=== PATIENT | female | born 1985 | race Caucasian/White ===

== ENCOUNTER 2017-04-17 14:48 | Observation (INO) | payer OTHER ==
[~2017-04-17 14:48] MED LIST: FERROUS GLUCON240 MG PO; IBUPROFEN800 M1 PO; PERCOCET 5-3251 EACH PO; PRENATAL VITAM1 EA11 PO; SINGULAIR10 M1 PO; SYNTHROID125 MC1 PO; TRIPNIP TOP; VITAMIN B COMP1 EAC1 PO; VITAMIN D1000 UNI3 PO; ZOFRAN ODT8 MG PO; ZOFRAN4 M2 PO
[2017-04-17] MEDS ORDERED: ZOLOFT100 M1 PO (15:29)
[2017-04-17 16:18] LABS: URINE BILIRUBIN NEGATIVE (NEG); URINE BLOOD NEGATIVE (NEG); URINE GLUCOSE (UA) NEGATIVE (NEG); URINE KETONE NEGATIVE (NEG); URINE LEUKOCYTE ESTERASE NEGATIVE (NEG); URINE NITRITE NEGATIVE (NEG); URINE PROTEIN NEGATIVE (NEG); URINE SPECIFIC GRAVITY 1.015 (1.003-1.030)
[2017-04-17 16:21] LABS: URINE APPEARANCE CLEAR; URINE COLOR PALE YELLOW
[2017-05-05] MEDS ORDERED: SINGULAIR10 M1 PO (12:13)
[2017-05-05] MEDS ORDERED: FLOVENT DISKUS50 MCG INH (12:15)
[2017-05-05] MEDS ORDERED: STOOL SOFTENER1 EAC4 PO (12:16)
[2017-05-05] MEDS ORDERED: XOPENEX HFA15 G1 INH (12:16)
[2017-05-09] MEDS ORDERED: IBUPROFEN800 M1 PO (06:41)
[2017-05-09] MEDS ORDERED: PERCOCET 5-3251 EACH PO (09:58)
[2017-05-09] MEDS ORDERED: TYLENOL325 M2 PO (10:02)
[2017-05-09] MEDS ORDERED: ZOFRAN4 M2 PO (11:54)
[2017-05-09] MEDS ORDERED: COLACE100 M1 PO (11:55)
== END 2017-04-17 17:15 ==
LOC: LDR 14:48
PROVIDERS: ADMIT Obstetrics & Gynecology Obstetrics
DX: O99.89 Other specified diseases and conditions complicating pregnancy, childbirth and the puerperium (principal); R06.02 Shortness of breath; R42 Dizziness and giddiness; R10.2 Pelvic and perineal pain; Z3A.36 36 weeks gestation of pregnancy; Z88.5 Allergy status to narcotic agent; Z91.040 Latex allergy status; Z90.49 Acquired absence of other specified parts of digestive tract; Z90.89 Acquired absence of other organs; Z98.890 Other specified postprocedural states